=== PATIENT | female | born 2005 | race Caucasian/White ===

== ENCOUNTER 2024-08-26 16:07 | Emergency (ER) | payer OTHER, SELFPAY ==
[2024-08-26 16:12] VITALS: BP 147/98; PULSE 88; TEMP 37.1; O2SAT 98; BMI 34.5
--- NOTE | 2024-08-26 16:27 | ED.GENADUL1 ---
HPI HPI - General Adult General Chief complaint: OB/Uterine Contractions Stated complaint: 6 WEEKS BLEEDING Time Seen by Provider: 08/26/24 16:15 Source: patient Mode of arrival: walk-in Limitations: no limitations History of Present Illness HPI narrative: 18-year-old female reports that she is and has a complaint of vaginal bleeding. She had her IUD removed 6 or 8 weeks ago and has not had a normal period since then. She states that she had a quantitative hCG performed at another hospital and it was positive. She has some mild left-sided abdominal pain. She has never been before. Related Data Allergies Allergy/AdvReac Type Severity Reaction Status Date / Time lorazepam (From Ativan) AdvReac Severe Hives Verified 08/26/24 16:17 chlorhexidine AdvReac Intermediate Hives Verified 08/26/24 16:17 codeine AdvReac Intermediate Hives Verified 08/26/24 16:17 diphth,pert(acell),tetan,polio AdvReac Intermediate Swelling Verified 08/26/24 16:18 vacc,component 1of2 (From of the Eye Pentacel DTaP-IPV Compnt (PF)) Opioid HPI Opioid Management Most Recent Opioid Data: No Data to Display Review of Systems ROS Narrative A ten point review of systems is negative except as noted above. PFSH PFSH Social History Little interest or pleasure in doing things: not at all Feeling down, depressed, or hopeless: not at all Exam Narrative Exam Narrative: Nurses note and vital signs reviewed and patient is not hypoxic. General: The patient appears well and in no apparent distress. Patient is resting comfortably on cart. Skin: Warm, dry, no pallor noted. There is no rash noted. Head: Normocephalic, atraumatic Eye: Normal conjunctiva, no drainage Ears, Nose, Mouth, and Throat: oral mucosa is moist. Nares patent. Cardiovascular: Regular Rate and Rhythm Respiratory: Patient is in no distress, no accessory muscle use, lungs are clear to auscultation, no wheezing, rales or rhonchi Back: non-tender, no CVA tenderness bilaterally to percussion. GI: Normal bowel sounds, no tenderness to palpation, no masses appreciated. No rebound, guarding, or rigidity noted. Musculoskeletal: The patient has no evidence of calf tenderness, no pitting edema, symmetrical pulses noted bilaterally Neurological: A&O x4, normal speech Psychiatric: Cooperative Constitutional Vital Signs, click to edit/add: Last Vital Signs Temp 98.8 F 08/26/24 16:12 Pulse 92 H 08/26/24 17:05 Resp 16 08/26/24 17:05 BP 132/93 H 08/26/24 17:05 Pulse Ox 99 08/26/24 17:05 O2 Del Method Room Air 08/26/24 16:12 Course Vital Signs Vital signs: Vital Signs Temperature 98.8 F 08/26/24 16:12 Pulse Rate 88 08/26/24 16:12 Respiratory Rate 18 08/26/24 16:12 Blood Pressure 147/98 H 08/26/24 16:12 Pulse Oximetry 98 08/26/24 16:12 Oxygen Delivery Method Room Air 08/26/24 16:12 Temperature 98.8 F 08/26/24 16:12 Pulse Rate 92 H 08/26/24 17:05 Respiratory Rate 16 08/26/24 17:05 Blood Pressure 132/93 H 08/26/24 17:05 Pulse Oximetry 99 08/26/24 17:05 Oxygen Delivery Method Room Air 08/26/24 16:12 Medical Decision Making MDM Narrative Medical decision making narrative: hCG titer is not measurable. Findings are discussed with the patient and she is discharged home. Treatment diagnosis and follow-up were discussed thoroughly. Differential Diagnosis Differential Diagnosis: , threatened miscarriage, miscarriage Lab Data Lab results reviewed: Yes I reviewed the patient's lab results Labs: Lab Results 08/26/24 Range/Units 16:38 WBC 8.7 (4.0-11.0) 10^3/uL RBC 5.37 (4.20-5.40) 10^6/uL Hgb 15.1 (12.0-16.0) g/dL Hct 45.0 (36.0-48.0) % MCV 83.8 (81.0-99.0) fL MCH 28.1 (26.7-34.0) pg MCHC 33.6 (29.9-35.2) g/dL RDW 12.3 (11.0-15.0) % Plt Count 406 (150-450) 10^3/uL MPV 9.2 L (9.5-13.5) fL Neut % (Auto) 57.7 (43.0-75.0) % Lymph % (Auto) 32.9 (20.5-60.0) % [place] % (Auto) 6.7 (1.7-12.0) % Eos % (Auto) 1.8 (0.9-7.0) % Baso % (Auto) 0.7 (0.2-2.0) % Neut # (Auto) 5.0 (1.4-6.5) 10^3/uL Lymph # (Auto) 2.9 (1.2-3.8) 10^3/uL [place] # (Auto) 0.6 (0.3-0.8) 10^3/uL Eos # (Auto) 0.2 (0.0-0.7) 10^3/uL Baso # (Auto) 0.1 (0.0-0.1) 10^3/uL Abs Immat Gran (auto) 0.02 (0.00-0.03) 10^3/uL Imm/Tot Granulo (auto) 0.2 (0.0-0.5) % Sodium 141 (136-145) mmol/L Potassium 3.8 (3.5-5.1) mmol/L Chloride 103 (98-107) mmol/L Carbon Dioxide 29.8 (21.0-32.0) mmol/L Anion Gap 12.0 BUN 10.0 (7.0-18.0) mg/dL Creatinine 0.96 (0.55-1.02) mg/dL Est GFR ( Amer) >60 (>=60 mL/min/1.73m^2) Est GFR (Non-Af Amer) >60 (>=60 mL/min/1.73m^2) BUN/Creatinine Ratio 10.4 Glucose 80 (74-106) mg/dL Calcium 9.4 (8.5-10.1) mg/dL HCG, Quant <1 mIU/mL Blood Type O Positive Discharge Plan Discharge Chief Complaint: OB/Uterine Contractions Clinical Impression: No problem, feared complaint unfounded Patient Disposition: Home, Self-Care Time of Disposition Decision: 17:25 Condition: Good Mode of Transportation: Private Vehicle Print Language: Greek Instructions: Abnormal (Dysfunctional) Uterine Bleeding (ED) Referrals: PHILIP BURROUGHS [Primary Care Provider] - 1 week
[2024-08-26 16:43] LABS: Basophils Absolute Auto 0.1 10^3/uL (0.0-0.1); Basophils Percent Auto 0.7 % (0.2-2.0); Eosinophils Absolute Auto 0.2 10^3/uL (0.0-0.7); Eosinophils Percent Auto 1.8 % (0.9-7.0); Hemoglobin 15.1 g/dL (12.0-16.0); Immature Granulocytes Abs Auto 0.02 10^3/uL (0.00-0.03); Immature Granulocytes Pct Auto 0.2 % (0.0-0.5); Lymphocytes Absolute Auto 2.9 10^3/uL (1.2-3.8); Lymphocytes Percent Auto 32.9 % (20.5-60.0); Mean Corpuscular HGB Conc 33.6 g/dL (29.9-35.2); Mean Corpuscular Hemoglobin 28.1 pg (26.7-34.0); Mean Corpuscular Volume 83.8 fL (81.0-99.0); Mean Platelet Volume 9.2 fL (9.5-13.5); Monocytes Absolute Auto 0.6 10^3/uL (0.3-0.8); Monocytes Percent Auto 6.7 % (1.7-12.0); Neutrophils Percent Auto 57.7 % (43.0-75.0); Platelet Count 406 10^3/uL (150-450); Red Blood Count 5.37 10^6/uL (4.20-5.40); Red Cell Distribution Width 12.3 % (11.0-15.0); White Blood Count 8.7 10^3/uL (4.0-11.0)
[2024-08-26 17:05] VITALS: BP 132/93; PULSE 92; O2SAT 99
[2024-08-26 17:05] LABS: BUN Creatinine Ratio 10.4; Calcium 9.4 mg/dL (8.5-10.1); Carbon Dioxide 29.8 mmol/L (21.0-32.0); Chloride 103 mmol/L (98-107); Estimated GFR (African America >60 (>=60 mL/min/1.73m^2); Estimated GFR (Non-African Ame >60 (>=60 mL/min/1.73m^2); Glucose 80 mg/dL (74-106); Potassium 3.8 mmol/L (3.5-5.1); Sodium 141 mmol/L (136-145)
[2024-08-26 17:09] LABS: HCG Quantitative <1 mIU/mL
== END 2024-08-26 17:33 | disposition home or self-care (01) ==
PROVIDERS: Emergency Provider Emergency Medicine
DX: Z03.89 Encounter for observation for other suspected diseases and conditions ruled out (principal)
CPT/HCPCS: 36415; 80048; 84702; 85025; 86900; 86901; 99285